=== PATIENT | female | born 1950 | race Caucasian/White ===

== ENCOUNTER 2016-11-05 07:44 | Day surgery (SDC) | payer OTHER ==
[~2016-11-05] VITALS: Ht 152.4 cm; Wt 57.1 kg
[~2016-11-05 07:44] MED LIST: ACET1TAB40 PO; ALEN70TA30 PO; CALC-143 PO; GLUC1CAP PO; OMEP20CA16 PO
[2016-11-05 08:38] VITALS: Ht 152.4 cm; Wt 57.1 kg
[2016-11-05] MEDS ORDERED: TAMO20TA PO (08:46)
[2016-11-05] MEDS ORDERED: ACET-141 PO (08:46)
[2016-11-05 08:50] VITALS: BP 136/65; PULSE 64; RESP 18
[2016-11-05] MEDS ORDERED: PROPOFOL 20 ML ONE (09:04)
[2016-11-05] MEDS ORDERED: FENTAnyl 50 MCG/ML VIAL ONE (09:05)
[2016-11-05] MEDS ORDERED: MIDAZOLAM 1 MG/ML 2 ML INJ ONE (09:05)
[2016-11-05 10:10] VITALS: BP 169/74; RESP 20
--- NOTE | 2016-11-05 13:37 | GILP ---
DATE OF PROCEDURE: 11/05/2016 INDICATION: A 66-year-old female undergoing this procedure for colon cancer screening. The risks o f the procedure, related and unrelated complications, anesthetic risk, alternatives discussed. Info rmed consent was obtained. DESCRIPTION OF PROCEDURE: The patient was brought to the GI lab, sedated by Dr. Tierney. After obta ining sedation, digital examination done. Sphincter tone was normal. Perianal area was normal. Sc ope was passed with much ease into rectum and advanced through clean colon all the way into cecum an d finally into terminal ileum. Terminal ileum up to ____ was normal. Rest of the colon appeared no rmal. A significant diverticula is seen on the right side of the colon and also near the hepatic fl exure. Rest of the colon appeared normal. No polyps seen. The rectum was normal. Small hemorrhoi ds identified. IMPRESSION: 1. Diverticulosis, more so on the right side of the colon, moderate degree. 2. Negative all the way into the cecum. 3. Negative terminal ileum. 4. Clarity and cleanliness was good. 5. Small hemorrhoid. 6. Digital exam was normal. PLAN: Stay on high fiber diet. Dictated By: SHERIF DOAN/JESSE Conf#: [id number] DID#: [id number] CC: SHERIF KLEIN MD;*EndCC*
== END 2016-11-05 12:10 | disposition home or self-care (01) ==
LOC: GIL 07:44
PROVIDERS: ATTEND Internal Medicine Gastroenterology
DX: Z12.11 Encounter for screening for malignant neoplasm of colon (principal); K57.30 Diverticulosis of large intestine without perforation or abscess without bleeding; K64.9 Unspecified hemorrhoids
CPT/HCPCS: 45378; J2250; J3010

== ENCOUNTER 2018-01-26 06:37 | Day surgery (SDC) | END 2018-01-26 13:30 | disposition home or self-care (01) ==